=== PATIENT | female | born 1970 | race Hispanic/Latino ===

== ENCOUNTER 2017-06-30 16:34 | Emergency (ER) | payer OTHER ==
[~2017-06-30] VITALS: Ht 165.1 cm; Wt 113.8 kg
[2017-06-30] MEDS ORDERED: COUMADIN10 MG PO (19:37)
[2017-06-30] MEDS ORDERED: NORCO 5/3251 TABLET PO (19:44)
[2017-06-30 19:46] VITALS: BP 125/96
== END 2017-06-30 19:51 | disposition home or self-care (01) ==
LOC: EME 16:34
PROVIDERS: Physician Assistant
DX: E11.622 Type 2 diabetes mellitus with other skin ulcer (principal); L97.329 Non-pressure chronic ulcer of left ankle with unspecified severity; R79.1 Abnormal coagulation profile; Z86.718 Personal history of other venous thrombosis and embolism; Z86.711 Personal history of pulmonary embolism; Z79.01 Long term (current) use of anticoagulants; I10 Essential (primary) hypertension; M32.9 Systemic lupus erythematosus, unspecified
CPT/HCPCS: 85610; 99281; 99283

== ENCOUNTER 2017-07-02 21:24 | Emergency (ER) | payer OTHER ==
[~2017-07-02] VITALS: Ht 160 cm; Wt 113.3 kg
[~2017-07-02 21:24] MED LIST: COUMADIN10 MG PO; NORCO 5/3251 TABLET PO
[2017-07-02 22:02] LABS: HEMATOCRIT 26.1 % (36.0-46.0); HEMOGLOBIN 8.7 G/DL (11.9-15.5); MCH 31.2 PG (29.0-34.0); MCHC 33.3 G/DL (30.0-36.0); MCV 93.5 FL (83-99); PLATELET COUNT 258 K/uL (156-360); RBC DIS.WIDTH-CV 13.2 % (11.8-14.6); RED BLOOD COUNT 2.79 M/uL (3.80-5.20)
[2017-07-02 22:11] LABS: CHLORIDE 101 mEq/L (99-109); SODIUM 141 mEq/L (136-147)
[2017-07-02 22:13] LABS: GLUCOSE 115 mg/dL (70-99)
[2017-07-02 22:17] LABS: CREATININE 1.1 mg/dL (0.6-1.3); GFR ESTIMATE (CALCULATED) 57 mL/min/
[2017-07-02 22:18] LABS: UREA NITROGEN (BUN) 16 mg/dL (9-23)
[2017-07-02 22:24] LABS: TROP-I INTERPRETATION NEGATIVE; TROPONIN-I < 0.01 ng/mL (0.0-0.30)
[2017-07-02 23:45] LABS: INTER. NORMALIZED RATIO 1.2
[2017-07-03] MEDS ORDERED: PERCOCET 5/31 TABLET PO (02:26)
[2017-07-03] MEDS ORDERED: ELIQUIS2.5 MG PO (02:26)
[2017-07-03 02:57] VITALS: BP 145/81
== END 2017-07-03 02:57 | disposition home or self-care (01) ==
LOC: EME 21:24
PROVIDERS: Physician Assistant
DX: R07.81 Pleurodynia (principal); R59.0 Localized enlarged lymph nodes; R79.1 Abnormal coagulation profile; J90 Pleural effusion, not elsewhere classified; N63.10 Unspecified lump in the right breast, unspecified quadrant; D64.9 Anemia, unspecified; Z86.2 Personal history of diseases of the blood and blood-forming organs and certain disorders involving the immune mechanism; Z86.718 Personal history of other venous thrombosis and embolism; Z86.711 Personal history of pulmonary embolism; R30.0 Dysuria; R16.2 Hepatomegaly with splenomegaly, not elsewhere classified; I10 Essential (primary) hypertension; E11.9 Type 2 diabetes mellitus without complications; Z79.01 Long term (current) use of anticoagulants
CPT/HCPCS: 71046; 71275; 80048; 81003; 84484; 85027; 85610; 93005; 99281; 99285; J1885; J7030

== ENCOUNTER 2017-07-08 21:03 | Inpatient (IN) | payer OTHER ==
[~2017-07-08] VITALS: Ht 165.1 cm; Wt 110.1 kg
[~2017-07-08 21:03] MED LIST changes: +ELIQUIS2.5 MG PO; +PERCOCET 5/31 TABLET PO
[2017-07-08 22:16] LABS: HEMATOCRIT 22.8 % (36.0-46.0); HEMOGLOBIN 7.5 G/DL (11.9-15.5); MCH 29.8 PG (29.0-34.0); MCHC 32.9 G/DL (30.0-36.0); MCV 90.5 FL (83-99); RBC DIS.WIDTH-CV 13.7 % (11.8-14.6); RBC DIS.WIDTH-SD 45.2 % (39-53); RED BLOOD COUNT 2.52 M/uL (3.80-5.20)
[2017-07-08 22:34] LABS: CHLORIDE 99 mEq/L (99-109); POTASSIUM 3.9 mEq/L (3.7-5.4); SODIUM 135 mEq/L (136-147)
[2017-07-08 22:35] LABS: GLUCOSE 139 mg/dL (70-99)
[2017-07-08 22:39] LABS: GFR ESTIMATE (CALCULATED) 29 mL/min/
[2017-07-08 22:40] LABS: PLATELET COUNT 374 K/uL (156-360)
[2017-07-08 22:41] LABS: TROP-I INTERPRETATION NEGATIVE; TROPONIN-I < 0.01 ng/mL (0.0-0.30)
[2017-07-08 22:53] LABS: UREA NITROGEN (BUN) 28 mg/dL (9-23)
[2017-07-08] MEDS ORDERED: COUMADIN5 MG PO (23:28)
[2017-07-08] MEDS ORDERED: BLOOD PRESSURE PO (23:28)
[2017-07-08] MEDS ORDERED: CARVEDILOL25 MG PO (23:28)
[2017-07-08] MEDS ORDERED: HYDROCHLOROTH12.5 M3 PO (23:28)
[2017-07-08 23:52] LABS: ALBUMIN 3.4 g/dL (3.2-4.8)
[2017-07-08 23:53] LABS: MAGNESIUM 1.9 mg/dL (1.3-2.7)
[2017-07-08 23:55] LABS: TOTAL PROTEIN 8.3 g/dL (6.4-8.3)
[2017-07-08 23:57] LABS: TOTAL BILIRUBIN 0.4 mg/dL (0.0-1.0)
[2017-07-08 23:57] LABS: CARBON DIOXIDE (BICARBONATE) 30.5 MEQ/L (20-31)
[2017-07-08 23:58] LABS: ALKALINE PHOSPHATASE 205 IU/L (3-129)
[2017-07-09] VITALS (11 sets, daily range): BP systolic 118–164; BP diastolic 60–95
[2017-07-09] LABS: AST (GOT) 22 IU/L (2-34); DIRECT BILIRUBIN 0.3 mg/dL (0.0-0.3)
[2017-07-09 00:01] LABS: ALT (GPT) 36 IU/L (3-49); LIPASE 22 U/L (1.0-51.0)
[2017-07-09 01:58] LABS: APPEARANCE SL.HAZY ((CLEAR)); BILIRUBIN NEGATIVE; BLOOD SMALL; COLOR YELLOW ((YELLOW)); GLUCOSE (STRIP) NEGATIVE; KETONES NEGATIVE; LEUKOCYTES SMALL; NITRITE POSITIVE; PROTEIN (STRIP) 30; SPECIFIC GRAVITY 1.009 (1.000-1.030); UROBILINOGEN 0.2 MG/DL (0.2-1.0)
[2017-07-09 02:04] LABS: BACTERIA 3+ /HPF; EPITHELIAL CELLS RARE /HPF; HYALINE CASTS 0-5 /LPF; MUCUS NONE SEEN /LPF; UCUL ADDED? YES; WHITE BLOOD CELLS 20-30 /HPF (0-5)
[2017-07-09 02:06] LABS: INTER. NORMALIZED RATIO 1.9
[2017-07-09 02:09] LABS: PTT 32.4 SEC (25-37)
[2017-07-09 05:01] LABS: BASOPHIL (%) 0.2 % (0-1); EOSINOPHIL (%) 1.2 % (0-5); EOSINOPHIL COUNT 0.1 K/uL (0-0.3); LYMPHOCYTE (%) 13.1 % (15-42); LYMPHOCYTE COUNT 1.2 K/uL (1.0-2.8); MONOCYTE (%) 4.7 % (3-12); MONOCYTE COUNT 0.4 K/uL (0-0.8); NEUTROPHIL (%) 79.8 % (45-76); NEUTROPHIL COUNT 7.2 K/uL (1.8-6.4)
[2017-07-09 08:44] LABS: HEMATOCRIT 22.1 % (36.0-46.0); MCH 28.5 PG (29.0-34.0); MCHC 30.8 G/DL (30.0-36.0); MCV 92.5 FL (83-99); PLATELET COUNT 336 K/uL (156-360); RBC DIS.WIDTH-CV 13.9 % (11.8-14.6); RBC DIS.WIDTH-SD 46.7 % (39-53); RED BLOOD COUNT 2.39 M/uL (3.80-5.20); WHITE BLOOD COUNT 7.8 K/uL (4.1-10.2)
[2017-07-09 08:51] LABS: INTER. NORMALIZED RATIO 1.9
[2017-07-09 08:55] LABS: HEMOGLOBIN 6.8 G/DL (11.9-15.5)
[2017-07-09 09:05] LABS: CHLORIDE 102 MEQ/L (99-109); CREATININE 1.8 MG/DL (0.6-1.3); GFR ESTIMATE (CALCULATED) 32 mL/min/; GLUCOSE 120 mg/dL (70-99); POTASSIUM 3.3 MEQ/L (3.7-5.4); SODIUM 137 MEQ/L (136-147); UREA NITROGEN (BUN) 26 mg/dL (9-23)
[2017-07-09 10:17] LABS: IMM.RETIC FRACTION 10.1 % (3-19); RETICULOCYTE COUNT 0.6 % (0.5-1.8)
[2017-07-09 10:54] LABS: MAGNESIUM 1.8 mg/dl (1.3-2.7)
[2017-07-09 11:02] LABS: IRON 35 MCG/DL (35-150); TRANSFERRIN (TIBC) 172.9 mg/dL (215-380); TRANSFERRIN SATUR. 20 % (20-55)
[2017-07-09 11:02] LABS: HEMATOCRIT 22.3 % (36.0-46.0); MCV 92.9 FL (83-99)
[2017-07-09 11:03] LABS: HEMOGLOBIN 6.9 G/DL (11.9-15.5)
[2017-07-09 11:52] LABS: LACTATE DEHYDROGENASE 197 IU/L (20-246); TOTAL BILIRUBIN 0.3 MG/DL (0.0-1.0)
[2017-07-09 15:14] LABS: HEMATOCRIT 22.5 % (36.0-46.0); MCV 92.6 FL (83-99)
[2017-07-09 15:29] LABS: UR CREATININE CONCENTRATION 59.1 MG/DL
[2017-07-09 19:42] LABS: HEMATOCRIT 24.9 % (36.0-46.0); HEMOGLOBIN 7.9 G/DL (11.9-15.5); MCV 89.9 FL (83-99)
[2017-07-10 00:16] VITALS: BP 124/60
[2017-07-10 02:20] LABS: HEMATOCRIT 25.6 % (36.0-46.0); HEMOGLOBIN 8.5 G/DL (11.9-15.5); MCV 88.9 FL (83-99)
[2017-07-10 03:38] VITALS: BP 141/74
[2017-07-10 07:25] LABS: HEMATOCRIT 27.1 % (36.0-46.0); HEMOGLOBIN 8.6 G/DL (11.9-15.5); MCV 89.7 FL (83-99)
[2017-07-10 07:26] LABS: HEMATOCRIT 27.6 % (36.0-46.0); HEMOGLOBIN 8.7 G/DL (11.9-15.5); MCH 28.2 PG (29.0-34.0); MCHC 31.5 G/DL (30.0-36.0); MCV 89.6 FL (83-99); PLATELET COUNT 387 K/uL (156-360); RBC DIS.WIDTH-CV 14.9 % (11.8-14.6); RBC DIS.WIDTH-SD 48.6 % (39-53); RED BLOOD COUNT 3.08 M/uL (3.80-5.20); WHITE BLOOD COUNT 9.4 K/uL (4.1-10.2)
[2017-07-10 07:31] VITALS: BP 140/75
[2017-07-10 07:52] LABS: ABS NEUTROPHIL COUNT 7.9; BAND NEUTROPHILS 8.7 % (0-8.0); EOSINOPHIL ABS CT 0.1; EOSINOPHILS 0.9 % (0-5.0); LYMPHOCYTES 11.3 % (15.0-45.0); MONOCYTES 3.5 % (0-9.0); PLAT.SUFFICIENCY INCREASED; SEG.NEUTROPHILS 75.6 % (46.0-76.0); SMUDGE CELLS 1.7
[2017-07-10 07:53] LABS: C4 COMPLEMENT 20 MG/DL (10-40); IMMUNOGLOBULIN G 1877 MG/DL (650-1600); IMMUNOGLOBULIN M 151 MG/DL (50-300)
[2017-07-10 08:15] LABS: FOLIC ACID (FOLATE) 19.9 NG/ML (5.0-22.0)
[2017-07-10 09:27] LABS: A/G RATIO 0.7 (1.1-1.8); ALBUMIN 2.9 G/DL (3.4-5.0); CHLORIDE 102 MEQ/L (99-109); CREATININE 1.7 MG/DL (0.6-1.3); FERRITIN 192 NG/ML (10-291); GFR ESTIMATE (CALCULATED) 34 mL/min/; GLUCOSE 123 mg/dL (70-99); SODIUM 139 MEQ/L (136-147); TOTAL PROTEIN 6.9 G/DL (6.4-8.2); UREA NITROGEN (BUN) 18 mg/dL (9-23)
[2017-07-10 09:35] LABS: POTASSIUM 4.1 MEQ/L (3.7-5.4)
[2017-07-10 10:51] LABS: HEPATITIS C ANTIBODY Nonreactive; HIV-1/2 AB/AG COMBO Nonreactive
[2017-07-10 12:16] LABS: ANTI-DOUBLE STRANDED DNA ND U/mL (0-99)
[2017-07-10 12:18] VITALS: BP 129/71
[2017-07-10 14:12] LABS: HEMOGLOBIN A1c (GLYCOHEMOGLOB) 5.2 % (Below 5.7)
[2017-07-10 15:24] VITALS: BP 140/88
[2017-07-10 19:37] VITALS: BP 166/77
[2017-07-11 00:07] VITALS: BP 146/75
[2017-07-11 06:32] LABS: HEMATOCRIT 28.8 % (36.0-46.0); HEMOGLOBIN 9.3 G/DL (11.9-15.5); MCH 28.6 PG (29.0-34.0); MCHC 32.3 G/DL (30.0-36.0); MCV 88.6 FL (83-99); PLATELET COUNT 383 K/uL (156-360); RBC DIS.WIDTH-CV 14.3 % (11.8-14.6); RBC DIS.WIDTH-SD 45.7 % (39-53); RED BLOOD COUNT 3.25 M/uL (3.80-5.20); WHITE BLOOD COUNT 10.4 K/uL (4.1-10.2)
[2017-07-11 06:35] LABS: INTER. NORMALIZED RATIO 1.8
[2017-07-11 07:02] LABS: CHLORIDE 99 MEQ/L (99-109); CREATININE 1.5 MG/DL (0.6-1.3); GFR ESTIMATE (CALCULATED) 40 mL/min/; PHOSPHORUS 5.5 mg/dL (2.5-4.9); POTASSIUM 4.1 MEQ/L (3.7-5.4); SODIUM 136 MEQ/L (136-147); UREA NITROGEN (BUN) 18 mg/dL (9-23)
[2017-07-11 07:03] LABS: GLUCOSE 211 mg/dL (70-99)
[2017-07-11 07:31] VITALS: BP 122/68
[2017-07-11 15:17] VITALS: BP 131/64
[2017-07-11 22:19] LABS: ERYTHROPOIETIN+ 50.4 mIU/mL (2.6-18.5)
[2017-07-11 23:37] LABS: HAPTOGLOBIN+ 420 mg/dL (43-212)
[2017-07-12 00:18] VITALS: BP 140/72
[2017-07-12 06:13] LABS: INTER. NORMALIZED RATIO 1.6
[2017-07-12 06:32] LABS: ALBUMIN 2.9 G/DL (3.2-4.8); CHLORIDE 100 MEQ/L (99-109); CREATININE 1.4 MG/DL (0.6-1.3); GFR ESTIMATE (CALCULATED) 43 mL/min/; GLUCOSE 205 mg/dL (70-99); POTASSIUM 4.5 MEQ/L (3.7-5.4); SODIUM 134 MEQ/L (136-147); UREA NITROGEN (BUN) 26 mg/dL (9-23)
[2017-07-12 07:42] VITALS: BP 126/84
[2017-07-12] MEDS ORDERED: COUMADIN5 MG PO (14:44)
[2017-07-12] MEDS ORDERED: CARVEDILOL25 MG PO (14:46)
[2017-07-12] MEDS ORDERED: PREDNISONE10 MG PO (14:46)
[2017-07-12] MEDS ORDERED: COUMADIN10 MG PO (15:09)
[2017-07-12 21:39] LABS: DRVVT Mixing Study Interp Not Indicated (()); dRVVT Screen 65 sec (<=45)
[2017-07-12 22:12] LABS: ADD PTT REFLEX? Y; PTT-LA 46 sec (<=40)
[2017-07-13 09:24] LABS: ALBUMIN 2.63 G/DL (3.6-4.9); ALPHA-1 GLOBULIN 0.59 G/DL (0.15-0.40); ALPHA-2 GLOBULIN 1.08 G/DL (0.45-0.85); BETA-GLOBULIN 0.81 G/DL (0.65-1.15); GAMMA-GLOBULIN 1.79 G/DL (0.60-1.35)
[2017-07-15 01:04] LABS: PARIETAL CELL ANTIBODY+ <=20.0 Unit (<=20.0)
== END 2017-07-12 16:10 | disposition home or self-care (01) | DRG 682 ==
LOC: EME 21:03 → EDOF 07-09 00:46 → 5SOUTH 07-09 00:46 → ENRESERV 07-09 00:49 → 5SOUTH 07-09 03:27
PROVIDERS: Emergency Medicine; Hospitalist; Internal Medicine; Internal Medicine Nephrology; Nurse Practitioner; Physician Assistant Medical
PROC: 0HDLXZZ Extraction of Left Lower Leg Skin, External Approach (ICD-10-PCS; principal; 2017-07-09)
DX: N17.0 Acute kidney failure with tubular necrosis (principal); J18.1 Lobar pneumonia, unspecified organism; N17.1 Acute kidney failure with acute cortical necrosis; D86.9 Sarcoidosis, unspecified; E11.9 Type 2 diabetes mellitus without complications; M32.9 Systemic lupus erythematosus, unspecified; L88 Pyoderma gangrenosum; I10 Essential (primary) hypertension; Z86.718 Personal history of other venous thrombosis and embolism; Z86.711 Personal history of pulmonary embolism; S81.802A Unspecified open wound, left lower leg, initial encounter; W57.XXXA Bitten or stung by nonvenomous insect and other nonvenomous arthropods, initial encounter; J98.11 Atelectasis; E87.6 Hypokalemia; D63.8 Anemia in other chronic diseases classified elsewhere; E66.9 Obesity, unspecified; Z68.39 Body mass index [BMI] 39.0-39.9, adult; J90 Pleural effusion, not elsewhere classified; R09.02 Hypoxemia; E86.0 Dehydration; E11.21 Type 2 diabetes mellitus with diabetic nephropathy; N30.01 Acute cystitis with hematuria; R80.9 Proteinuria, unspecified; K92.1 Melena; B96.20 Unspecified Escherichia coli [E. coli] as the cause of diseases classified elsewhere; N63.0 Unspecified lump in unspecified breast; R79.1 Abnormal coagulation profile; Z16.12 Extended spectrum beta lactamase (ESBL) resistance; Z79.4 Long term (current) use of insulin; Z87.442 Personal history of urinary calculi; Z79.01 Long term (current) use of anticoagulants
CPT/HCPCS: 71046; 73590; 76770; 80048; 80069; 80076; 81003; 82164 90; 82247; 82272; 82436; 82570; 82607; 82668 90; 82728; 82746; 82784; 82803; 82948; 83010 90; 83036; 83516 90; 83540; 83605; 83615; 83690; 83735; 83880; 83883 90; 84134; 84156; 84165; 84300; 84466; 84484; 85014; 85018; 85025; 85027; 85046; 85597 90; 85610; 85613 90; 85651; 85730; 85730 90; 86038; 86140; 86147 90; 86160; 86235; 86334; 86803; 86850; 86900; 86901; 86920; 87040; 87070; 87075; 87077; 87086; 87106; 87186; 87205; 87389; 87449; 87502; 93005; 93970; 94640; 94640 76; 94760; 94799; 99202; 99281; 99285; J0456; J0696; J1170; J1335; J1650; J1815; J2930; J3010; J7030; J7050; J7120; P9016

== ENCOUNTER 2017-09-23 12:11 | Day surgery (SDC) | payer OTHER ==
[~2017-09-23] VITALS: Ht 165.1 cm; Wt 125.7 kg
[~2017-09-23 12:11] MED LIST changes: +ADVIL,NUPRIN,M200 MG PO; +ALBUTEROL2.5 MG/3 M IH; +BLOOD PRESSURE PO; +CARVEDILOL25 MG PO; +COREG25 M1 PO; +COUMADIN5 MG PO; +HYDROCHLOROTH12.5 M3 PO; +PREDNISONE10 MG PO; +PULMICORT FLEX90 MCG IH; +[UNRECOGNIZED DRUG - OTHER] PO
[2017-09-23 12:55] VITALS: BP 118/70
[2017-09-23 12:57] LABS: INTER. NORMALIZED RATIO 1.1
[2017-09-23] MEDS ORDERED: NORCO 5/3251 TABLET PO (16:06)
[2017-09-23 17:12] VITALS: BP 191/84
[2017-09-23 17:50] VITALS: BP 187/79
== END 2017-09-23 17:55 | disposition home or self-care (01) ==
LOC: SDC 12:11
PROVIDERS: Surgery
PROC: 07B50ZX Excision of Right Axillary Lymphatic, Open Approach, Diagnostic (ICD-10-PCS; principal; 2017-09-23)
DX: R59.0 Localized enlarged lymph nodes (principal); M32.9 Systemic lupus erythematosus, unspecified; D64.9 Anemia, unspecified; E66.01 Morbid (severe) obesity due to excess calories; Z68.41 Body mass index [BMI] 40.0-44.9, adult; D47.2 Monoclonal gammopathy; I12.9 Hypertensive chronic kidney disease with stage 1 through stage 4 chronic kidney disease, or unspecified chronic kidney disease; E11.22 Type 2 diabetes mellitus with diabetic chronic kidney disease; N18.9 Chronic kidney disease, unspecified; G47.30 Sleep apnea, unspecified; I25.10 Atherosclerotic heart disease of native coronary artery without angina pectoris; R00.2 Palpitations; Z86.711 Personal history of pulmonary embolism; Z86.718 Personal history of other venous thrombosis and embolism; Z79.01 Long term (current) use of anticoagulants
CPT/HCPCS: 82948; 85610; 88305; 93005; J0690; J1170; J2250; J2405; J2710; J3010; J7643; S0020